=== PATIENT | female | born 1980 | race Caucasian/White ===

== ENCOUNTER → 2016-12-23 | Outpatient (CLI) | payer OTHER ==
[2016-12-23 06:09] LABS: BASO % 0 % (0-3); EOS # 0.2 x10^3/uL (0.0-0.7); EOS % 2 % (0-3); HEMATOCRIT 36.6 % (36.0-47.0); HEMOGLOBIN 12.6 g/dL (12.0-15.5); LYMPH # 1.9 x10^3/uL (1.0-4.8); LYMPH % 27 % (24-48); MEAN CORPUSCULAR HEMOGLOBIN 29 pg (25-35); MEAN CORPUSCULAR HGB CONC 34 g/dL (31-37); MEAN CORPUSCULAR VOLUME 85 fL (79-100); MONO # 0.4 x10^3/uL (0.0-1.1); MONO % 6 % (0-9); NEUT # 4.4 x10^3uL (1.8-7.7); NEUT % 64 % (31-73); PLATELET COUNT 267 x10^3/uL (140-400); RED BLOOD COUNT 4.32 x10^6/uL (3.50-5.40); RED CELL DISTRIBUTION WIDTH 13.4 % (11.5-14.5); WHITE BLOOD COUNT 6.9 x10^3/uL (4.0-11.0)
[2016-12-23 06:13] LABS: ALBUMIN 3.6 g/dL (3.4-5.0); ALBUMIN/GLOBULIN RATIO 0.9 (1.0-1.7); CALCIUM 8.9 mg/dL (8.5-10.1); CREATININE 0.8 mg/dL (0.6-1.0); GFR 81.2; POTASSIUM 3.7 mmol/L (3.5-5.1); TOTAL BILIRUBIN 0.6 mg/dL (0.2-1.0); TOTAL PROTEIN 7.7 g/dL (6.4-8.2)
[2016-12-23 10:46] LABS: FREE T4 1.09 ng/dL (0.76-1.46); THYROID STIM HORMONE (TSH) 1.347 uIU/mL (0.358-3.740)
[2016-12-24 01:06] LABS: HEMOGLOBIN A1C 5.1 % (4.8-5.6)
== END | disposition home or self-care (01) ==
LOC: LAB 03:45
PROVIDERS: ATTEND Nurse Practitioner Family
DX: Z13.228 Encounter for screening for other metabolic disorders (principal); R53.83 Other fatigue
CPT/HCPCS: 36415; 80053; 80061; 82306; 82607; 82746; 83036; 83540; 83550; 84439; 84443; 85025

== ENCOUNTER → 2016-12-25 | Outpatient (CLI) | payer OTHER ==
--- NOTE | 2016-12-25 11:13 | RAD ---
DATE: 12/25/2016 EXAM: MAMMO MUNIRA SCREENING BILATERAL HISTORY: Screening. COMPARISON: None. This is a baseline study. This study was interpreted with the benefit of Computerized Aided Detection (CAD). FINDINGS: Breast Density: SCATTERED The breast parenchyma shows scattered fibroglandular densities. Breast parenchyma level B. There is no dominant mass or soft tissue mass in either breast. No suspect calcifications are seen. Occasional lymph nodes are noted in both axilla. IMPRESSION: Benign findings BI-RADS CATEGORY: 2 BENIGN FINDING(S) RECOMMENDED FOLLOW-UP: CLIN FOLLOW UP IMAGING CLINICALLY INDICATED PQRS compliance statement: Patient information was entered into a reminder system with a target due date as clinically warranted for the next mammogram. Mammography is a sensitive method for finding small breast cancers, but it does not detect them all and is not a substitute for careful clinical examination. A negative mammogram does not negate a clinically suspicious finding and should not result in delay in biopsying a clinically suspicious abnormality. "Our facility is accredited by the [employer] Mammography Program."
== END | disposition home or self-care (01) ==
LOC: MAMMO 08:28
PROVIDERS: ATTEND Nurse Practitioner Family
DX: Z12.31 Encounter for screening mammogram for malignant neoplasm of breast (principal)
CPT/HCPCS: 77063; G0202; 77067

== ENCOUNTER → 2018-08-23 | Outpatient (CLI) | payer OTHER ==
[2018-08-23 18:00] LABS: BASO # 0.1 x10^3/uL (0.0-0.2); BASO % 1 % (0-3); EOS # 0.2 x10^3/uL (0.0-0.7); EOS % 1 % (0-3); HEMATOCRIT 40.2 % (36.0-47.0); HEMOGLOBIN 13.4 g/dL (12.0-15.5); LYMPH % 19 % (24-48); MEAN CORPUSCULAR HEMOGLOBIN 28 pg (25-35); MEAN CORPUSCULAR HGB CONC 33 g/dL (31-37); MEAN CORPUSCULAR VOLUME 85 fL (79-100); MONO # 0.9 x10^3/uL (0.0-1.1); MONO % 9 % (0-9); NEUT # 7.3 x10^3uL (1.8-7.7); NEUT % 70 % (31-73); PLATELET COUNT 273 x10^3/uL (140-400); RED BLOOD COUNT 4.75 x10^6/uL (3.50-5.40); RED CELL DISTRIBUTION WIDTH 14.2 % (11.5-14.5); WHITE BLOOD COUNT 10.5 x10^3/uL (4.0-11.0)
[2018-08-23 18:07] LABS: BACTERIA,URINE FEW /HPF (0-FEW); BILIRUBIN,URINE NEG (NEG); CLARITY,URINE HAZY; COLOR,URINE YELLOW; GLUCOSE,URINE NEG (NEG); NITRITE,URINE NEG (NEG); RBC,URINE 0 /HPF (0-2); SQUAMOUS EPITHELIAL CELL,UR OCC /LPF; UROBILINOGEN,URINE 0.2 mg/dL (0.2 mg/dL)
[2018-08-24 02:06] LABS: THYROXINE 7.5 ug/dL (4.5-12.0)
== END | disposition home or self-care (01) ==
LOC: LAB 17:30
PROVIDERS: ATTEND Family Medicine
DX: Z34.01 Encounter for supervision of normal first pregnancy, first trimester (principal); R53.83 Other fatigue
CPT/HCPCS: 36415; 81001; 84436; 84443; 84480; 84482; 85025; 86703; 86850; 86900; 86901; 87086

== ENCOUNTER → 2018-11-30 | Outpatient (CLI) | payer OTHER ==
--- NOTE | 2018-11-30 06:43 | RAD ---
Three-view right foot dated 11/30/2018. No comparison available. Clinical data indication: Pain. Finds: 3 views right foot show normal bony alignment. No displaced fracture. No acute osseous or articular abnormality. No periostitis or bone destruction. IMPRESSION: No acute radiographic abnormality. Electronically signed by: Zachery Marshall MD (11/30/2018 6:39 AM) [facility]
== END | disposition home or self-care (01) ==
LOC: RAD 05:58
PROVIDERS: ATTEND Nurse Practitioner Family
DX: M79.671 Pain in right foot (principal)
CPT/HCPCS: 73630

== ENCOUNTER → 2019-10-30 | Outpatient (CLI) | payer OTHER | LOC: LAB 18:38 | PROVIDERS: ATTEND Internal Medicine Cardiovascular Disease | DX: J45.909 Unspecified asthma, uncomplicated (principal); Z20.828 Contact with and (suspected) exposure to other viral communicable diseases | CPT/HCPCS: 36415; U0003 ==

== ENCOUNTER → 2019-11-09 | Outpatient (CLI) | payer OTHER ==
[2019-11-09 23:07] LABS: THYROXINE 5.8 ug/dL (4.5-12.0)
== END | disposition home or self-care (01) ==
LOC: LAB 05:55
PROVIDERS: ATTEND Family Medicine
DX: E55.9 Vitamin D deficiency, unspecified (principal)
CPT/HCPCS: 36415; 82306; 84436; 84443; 84480; 84482

== ENCOUNTER → 2019-12-20 | Outpatient (CLI) | payer OTHER | END | disposition home or self-care (01) | LOC: LAB 22:55 | PROVIDERS: ATTEND Internal Medicine Cardiovascular Disease | DX: J45.909 Unspecified asthma, uncomplicated (principal); Z20.828 Contact with and (suspected) exposure to other viral communicable diseases | CPT/HCPCS: U0003-CS ==

== ENCOUNTER → 2020-03-14 | Outpatient (CLI) | payer OTHER | LOC: LAB 09:33 | PROVIDERS: ATTEND Internal Medicine Cardiovascular Disease | DX: R51.9 Headache, unspecified (principal); R06.02 Shortness of breath; R09.81 Nasal congestion; Z20.828 Contact with and (suspected) exposure to other viral communicable diseases | CPT/HCPCS: U0003 ==

== ENCOUNTER → 2021-03-15 | Outpatient (CLI) | payer OTHER | LOC: LAB 08:28 | PROVIDERS: ATTEND Internal Medicine Cardiovascular Disease | DX: Z20.822 Contact with and (suspected) exposure to COVID-19 (principal) | CPT/HCPCS: U0003 ==

== ENCOUNTER → 2021-03-19 | Outpatient (CLI) | payer OTHER | LOC: LAB 17:36 | PROVIDERS: ATTEND Internal Medicine Cardiovascular Disease | DX: Z20.822 Contact with and (suspected) exposure to COVID-19 (principal) | CPT/HCPCS: U0003 ==

== ENCOUNTER → 2021-04-10 | Outpatient (CLI) | payer OTHER | LOC: LAB 01:44 | PROVIDERS: ATTEND Internal Medicine Cardiovascular Disease | DX: Z20.822 Contact with and (suspected) exposure to COVID-19 (principal) | CPT/HCPCS: U0003 ==